=== PATIENT | female | born 1965 | race Hispanic/Latino ===

== ENCOUNTER 2019-08-30 15:09 | Emergency (ER) | payer BC ==
[2019-08-30] MEDS ORDERED: ASPIRIN 81 MG CHEWABLE TABLET ONE (15:43)
[2019-08-30] MEDS ORDERED: NA CHLORIDE 0.9% 1,000 ML ONE (15:43)
[2019-08-30 15:44] LABS: Absolute Lymphocytes (CBC) 1.8 K/uL (0.7-4.9); Basophils % 0.8 % (0-1.3); Lymphocytes % 34.2 % (15.3-44.8); MPV 9.6 fL (7.6-11.3); RBC Red Blood Cell Count 4.26 M/uL (3.86-4.86)
[2019-08-30 15:47] LABS: Protime INR 0.89
--- NOTE | 2019-08-30 16:00 | RAD REPORT ---
EXAM DESCRIPTION: RAD - Chest Single View - 08/30/2019 3:47 pm CLINICAL HISTORY: CHEST PAIN Chest pain. COMPARISON: <Comparisons> FINDINGS: Portable technique limits examination quality. The lungs are grossly clear. The heart is normal in size. No displaced fractures. IMPRESSION: No acute intrathoracic process suspected.
[2019-08-30 16:05] LABS: ALT/SGPT 23 U/L (12-78); AST/SGOT 15 U/L (15-37); Albumin 3.8 g/dL (3.4-5.0); Alkaline Phosphatase 100 U/L (45-117); BUN Blood Urea Nitrogen 11 mg/dL (7-18); Bicarbonate 29 mmol/L (21-32); Bilirubin Direct < 0.1 mg/dL (0-0.2); Bilirubin Total 0.3 mg/dL (0.2-1.0); Glucose Level 83 mg/dL (74-106); Magnesium 2.6 mg/dL (1.8-2.4); NT PRO-BNP 30 pg/mL (<125); Potassium 3.3 mmol/L (3.5-5.1); Protein, Total 7.6 g/dL (6.4-8.2); Sodium Level 140 mmol/L (136-145); Troponin (Emerg Dept Use Only) < 0.02 ng/mL (0.0-0.045)
[2019-08-30] MEDS ORDERED: MAGNE/ALUM HYDROXD 30 ML UCUP ONE (17:30)
[2019-08-30] MEDS ORDERED: LIDOCAINE VISCOUS 2% SOLN 15 ML UDC ONE (17:31)
[2019-08-30] MEDS ORDERED: PANTOPRAZOLE 40MG TABLET PO ONE (17:31)
--- NOTE | 2019-08-30 19:22 | ER ---
Nurse's Notes [facility] Name: Darcy Shay Age: 53 yrs Sex: Female : 1965 Arrival Date: 08/30/2019 Time: 15:11 Bed 7 Private MD: Chaparrita Mg K Diagnosis: Chest pain, unspecified Presentation: 08/30 15:11 Presenting complaint: Patient states: Chest pain that started yesterday. Reports left aj1 sided chest pain that radiates to the back. Patient also reports shortness of breath. Denies cough congestion. Transition of care: patient was not received from another setting of care. Onset of symptoms was August 29, 2019. Risk Assessment: Do you want to hurt yourself or someone else? Patient reports no desire to harm self or others. Initial Sepsis Screen: Does the patient meet any 2 criteria? No. Patient's initial sepsis screen is negative. Does the patient have a suspected source of infection? No. Patient's initial sepsis screen is negative. Care prior to arrival: None. 15:11 Method Of Arrival: [facility] 15:11 Acuity: EZE 3 aj1 Triage Assessment: 15:13 General: Appears in no apparent distress. uncomfortable, Behavior is calm, cooperative, aj1 appropriate for age. Pain: Complains of pain in anterior aspect of left upper chest Pain radiates to back and left arm Pain currently is 9 out of 10 on a pain scale. Neuro: Level of Consciousness is awake, alert, obeys commands. Cardiovascular: Patient's skin is warm and dry. Respiratory: Airway is patent Respiratory effort is even, unlabored, Respiratory pattern is regular, symmetrical. 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 - Social history:: Smoking status: Patient/guardian denies using tobacco. - Ebola Screening: : Patient denies travel to an Ebola-affected area in the 21 days before illness onset. Screenin:36 Abuse screen: Denies threats or abuse. Nutritional screening: No deficits noted. aa5 Tuberculosis screening: No symptoms or risk factors identified. Fall Risk None identified. Assessment: 15:36 General: Appears in no apparent distress. Behavior is calm, cooperative. Pain: aa5 Complains of pain in anterior aspect of left upper chest Pain does not radiate. Pain currently is 5 out of 10 on a pain scale. Quality of pain is described as burning, aching, pressure, radiating, sharp, shooting, stabbing. Neuro: Level of Consciousness is awake, alert, obeys commands, Oriented to person, place, time, situation. Cardiovascular: Heart tones S1 S2 present. Respiratory: Airway is patent Respiratory effort is even, unlabored, Respiratory pattern is regular, symmetrical, Breath sounds are clear bilaterally. GI: No signs and/or symptoms were reported involving the gastrointestinal system. : No signs and/or symptoms were reported regarding the genitourinary system. 16:32 Reassessment: Patient appears in no apparent distress at this time. No changes from la1 previously documented assessment. Patient and/or family updated on plan of care and expected duration. Pain level reassessed. Patient is alert, oriented x 3, equal unlabored respirations, skin warm/dry/pink. 18:38 Reassessment: Patient appears in no apparent distress at this time. No changes from la1 previously documented assessment. Patient and/or family updated on plan of care and expected duration. Pain level reassessed. Patient is alert, oriented x 3, equal unlabored respirations, skin warm/dry/pink. 19:30 Reassessment: Patient appears in no apparent distress at this time. No changes from la1 previously documented assessment. Patient and/or family updated on plan of care and expected duration. Pain level reassessed. Patient is alert, oriented x 3, equal unlabored respirations, skin warm/dry/pink. Vital Signs: 15:13 Pulse 77; Resp 18; Temp 97.8; Pulse Ox 100% on R/A; Weight 57.15 kg (R); Height 5 ft. 1 aj1 in. (154.94 cm) (R); Pain 9/10; 15:14 BP 159 / 90; aj1 17:34 BP 145 / 74; Pulse 74; Resp 16; Pulse Ox 98% on R/A; la1 18:38 BP 129 / 80; Pulse 74; Resp 16; Pulse Ox 98% on R/A; la1 19:30 BP 148 / 87; Pulse 76; Resp 16; Pulse Ox 98% on R/A; la1 15:13 Body Mass Index 23.81 (57.15 kg, 154.94 cm) aj1 ED Course: 15:11 Patient arrived in ED. mr 15:11 Chaparrita Mg MD is Private Physician. mr 15:12 Triage completed. aj1 15:15 Arm band placed on Patient placed in an exam room. aj1 15:20 Man Stanley PA is PHCP. cp 15:20 Man Metz MD is Attending Physician. cp 15:21 Olegario Baca, KATIE is Primary Nurse. la1 15:33 EKG done, by orthotics technician. reviewed by Man KEE. sm3 15:36 No provider procedures requiring assistance completed. Inserted saline lock: 20 gauge aa5 in right antecubital area, using aseptic technique. Blood collected. 15:37 Patient has correct armband on for positive identification. Placed in gown. Bed in low aa5 position. panel monitor on. Pulse ox on. NIBP on. 15:49 XRAY Chest (1 view) In Process Unspecified. EDMS 19:21 Chaparrita Mg MD is Referral Physician. cp 19:21 Sergio Zamora MD is Referral Physician. cp 19:30 IV discontinued, intact, bleeding controlled, No redness/swelling at site. Pressure la1 dressing applied. Administered Medications: 15:47 Drug: NS 0.9% 1000 ml Route: IV; Rate: 1 bolus; Site: right antecubital; la1 16:33 Follow up: IV Status: Completed infusion la1 15:47 Drug: Aspirin Chewable Tablet 324 mg Route: PO; la1 16:24 Follow up: Response: No adverse reaction la1 16:33 Follow up: Response: No adverse reaction la1 15:47 Drug: Nitroglycerin 0.4 mg Route: Sublingual; la1 16:24 Follow up: Response: No adverse reaction la1 16:33 Follow up: Response: No adverse reaction la1 17:34 Drug: GI Cocktail without - (Maalox Suspension 30 ml, Lidocaine Liquid 2 % 15 la1 ml) Route: PO; 18:38 Follow up: Response: No adverse reaction la1 17:34 Drug: ProTONIX 40 mg Route: PO; la1 18:38 Follow up: Response: No adverse reaction la1 Outcome: 19:21 Discharge ordered by . imer 19:30 Discharged to home ambulatory. la1 19:30 Condition: stable 19:30 Discharge instructions given to patient, Instructed on discharge instructions, follow up and referral plans. no driving heavy equipment, Demonstrated understanding of instructions, follow-up care, medications, Prescriptions given X 2. 19:31 Patient left the ED. la1 Signatures: Dispatcher [employer] EDMS Catherine Wheat, RN RN major1 Ibeth Doran mr BeeJustine RN RN aa5 Olegario Baca RN RN la1 Man Stanley PA PA cp Montes, Shakira 3
--- NOTE | 2019-08-30 19:22 | EDPHYS ---
Physician Documentation [facility] Name: Darcy Shay Age: 53 yrs Sex: Female : 1965 Arrival Date: 08/30/2019 Time: 15:11 Bed 7 Private MD: Chaparrita Mg K ED Physician Man Metz HPI: 08/30 15:35 This 53 yrs old Female presents to ER via Ambulatory with complaints of Chest cp Pain. 15:35 The patient or guardian reports chest pain that is located primarily in the anterior cp chest wall, left. 15:35 Onset: yesterday. The pain radiates to left back. Associated signs and symptoms: cp Pertinent positives: shortness of breath, Pertinent negatives: abdominal pain, cough, diaphoresis, dizziness, headache, lower extremity pain, lower extremity swelling, recent travel, syncope. 15:35 The chest pain is described as aching, a pressure, sharp, constant. Duration: The cp patient or guardian reports a single episode, that is still ongoing, and unchanged. 15:35 Modifying factors: the symptoms are aggravated by nothing. Severity of pain: in the cp emergency department the pain is unchanged despite home interventions, is a . 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 - Social history:: Smoking status: Patient/guardian denies using tobacco. - Ebola Screening: : Patient denies travel to an Ebola-affected area in the 21 days before illness onset. ROS: 15:38 Constitutional: Negative for body aches, chills, fever, poor PO intake. cp 15:38 Eyes: Negative for injury, pain, redness, and discharge. cp 15:38 ENT: Negative for drainage from ear(s), ear pain, sore throat, difficulty swallowing, difficulty handling secretions. 15:38 Cardiovascular: Positive for chest pain, Negative for edema, palpitations. 15:38 Respiratory: Positive for shortness of breath, Negative for cough, wheezing. 15:38 Abdomen/GI: Negative for abdominal pain, nausea, vomiting, and diarrhea, constipation. 15:38 Back: Positive for radiated pain, Negative for injury or acute deformity. 15:38 : Negative for urinary symptoms. 15:38 Skin: Negative for cellulitis, rash. 15:38 Neuro: Positive for numbness, of the left arm, Negative for altered mental status, headache, weakness. 15:38 All other systems are negative. Exam: 15:35 ECG was reviewed by the Attending Physician. cp 15:45 Constitutional: The patient appears in no acute distress, alert, awake, cp non-diaphoretic, non-toxic, well developed, well nourished. 15:45 Head/Face: Normocephalic, atraumatic. cp 15:45 Eyes: Periorbital structures: appear normal, Pupils: equal, round, and reactive to light and accomodation, Extraocular movements: intact throughout, Conjunctiva: normal, no exudate, no injection, Sclera: no appreciated abnormality, Lids and lashes: appear normal, bilaterally. 15:45 ENT: External ear(s): are unremarkable, Ear canal(s): are normal, clear, TM's: bulging, is not appreciated, bilaterally, Nose: is normal, Mouth: is normal, Posterior pharynx: is normal, airway is patent, no erythema, no exudate, Voice: is normal. 15:45 Neck: ROM/movement: is normal, is supple, without pain, no range of motions limitations, no meningismus, no nuchal rigidity. 15:45 Chest/axilla: Inspection: normal, Palpation: is normal, no crepitus, no tenderness. 15:45 Cardiovascular: Rate: normal, Rhythm: regular, Pulses: Pulses are 2+ in right radial artery and left radial artery. Heart sounds: murmur, not appreciated, Edema: is not appreciated, JVD: is not appreciated. 15:45 Respiratory: the patient does not display signs of respiratory distress, Respirations: normal, no use of accessory muscles, no retractions, no splinting, no tachypnea, labored breathing, is not present, Breath sounds: are clear throughout, no decreased breath sounds, no stridor, no wheezing. 15:45 Abdomen/GI: Inspection: abdomen appears normal, Palpation: abdomen is soft and non-tender, in all quadrants. 15:45 Back: pain, that is mild, of the left trapezius and left scapular area, ROM is normal. 15:45 Skin: no rash present. 15:45 Neuro: Orientation: to person, place \T\ time. Mentation: is normal, Motor: moves all fours, strength is normal, Sensation: numbness, that is mild, of the left arm. 19:18 ECG was reviewed by the Attending Physician. Vital Signs: 15:13 Pulse 77; Resp 18; Temp 97.8; Pulse Ox 100% on R/A; Weight 57.15 kg (R); Height 5 ft. 1 aj1 in. (154.94 cm) (R); Pain 9/10; 15:14 BP 159 / 90; aj1 17:34 BP 145 / 74; Pulse 74; Resp 16; Pulse Ox 98% on R/A; la1 18:38 BP 129 / 80; Pulse 74; Resp 16; Pulse Ox 98% on R/A; la1 19:30 BP 148 / 87; Pulse 76; Resp 16; Pulse Ox 98% on R/A; la1 15:13 Body Mass Index 23.81 (57.15 kg, 154.94 cm) aj1 MDM: 15:23 Patient medically screened. jorge 16:00 Differential diagnosis: abnormal EKG, acute myocardial infarction, cholecystitis, cp Cholelithiasis costochondritis, pericarditis, pleurisy, pneumonia, pneumothorax, pulmonary embolus, stable angina, thoracic aortic disection, unstable angina. 16:55 HEART Score: History: Slightly Suspicious (0), ECG: Normal (0), Age: > 45 and < 65 cp years (1), Risk Factors: 1 or 2 risk factors (1), [Hypercholesterolemia] [+ Family HX] Troponin: < or = 1 x Normal Limit (0), Total Score = 3. The patient was given aspirin in the Emergency Department. Data reviewed: vital signs, nurses notes, lab test result(s), EKG, radiologic studies, plain films. 16:56 Physician consultation: Carmelo Chand DO was called at 16:45, was contacted at 16:45, regarding admission, to the telemetry unit. patient's condition, in the emergency department to see patient at 16:45, recommends repeat troponin and outpatient f/u with cardiology and family practice. 19:20 Test interpretation: by ED physician or midlevel provider: ECG, plain radiologic cp studies. 19:20 Counseling: I had a detailed discussion with the patient and/or guardian regarding: the cp historical points, exam findings, and any diagnostic results supporting the discharge/admit diagnosis, the presence of at least one elevated blood pressure reading (>120/80) during this emergency department visit, lab results, radiology results, the need for outpatient follow up, a car filler, a family practitioner, to return to the emergency department if symptoms worsen or persist or if there are any questions or concerns that arise at home. Response to treatment: the patient's symptoms have markedly improved after treatment, VSS. Patient remained chest pain free after administration of meds. Repeat troponin and EKG negative. Will discharge to home for continued monitoring. 08/30 15:28 Order name: Basic Metabolic Panel; Complete Time: 16:07 08/30 16:07 Interpretation: Normal except: K 3.3. 08/30 15:28 Order name: CBC with Diff; Complete Time: 16:07 08/30 15:28 Order name: LFT's; Complete Time: 16:07 08/30 16:08 Interpretation: Normal except: GLOB 3.8; A/G 1.0. 08/30 15:28 Order name: Magnesium; Complete Time: 16:07 08/30 16:07 Interpretation: Abnormal: MG 2.6. 08/30 15:28 Order name: NT PRO-BNP; Complete Time: 16:07 08/30 15:28 Order name: PT-INR; Complete Time: 16:07 08/30 15:28 Order name: Troponin (emerg Dept Use Only); Complete Time: 16:07 08/30 16:08 Interpretation: Within normal limits: TROPED < 0.02. 08/30 15:28 Order name: XRAY Chest (1 view); Complete Time: 16:13 08/30 16:13 Interpretation: Report review. 08/30 15:28 Order name: D-Dimer; Complete Time: 16:07 08/30 18:28 Order name: Troponin (emerg Dept Use Only); Complete Time: 19:07 la1 08/30 19:07 Interpretation: Reviewed. 08/30 15:28 Order name: EKG; Complete Time: 15:29 cp 08/30 15:28 Order name: Cardiac monitoring; Complete Time: 15:36 cp 08/30 15:28 Order name: EKG - Nurse/Tech; Complete Time: 15:36 cp 08/30 15:28 Order name: IV Saline Lock; Complete Time: 15:36 cp 08/30 15:28 Order name: Labs collected and sent; Complete Time: 15:36 cp 08/30 15:28 Order name: O2 Per Protocol; Complete Time: 15:36 cp 08/30 15:28 Order name: O2 Sat Monitoring; Complete Time: 15:36 cp 08/30 18:34 Order name: EKG; Complete Time: 18:35 cp 08/30 18:34 Order name: EKG - Nurse/Tech; Complete Time: 18:52 cp EC:35 Rate is 64 beats/min. Rhythm is regular. TX interval is normal. QRS interval is normal. cp QT interval is normal. Interpreted by me. Reviewed by me. 19:18 Rate is 62 beats/min. Rhythm is regular. TX interval is normal. QRS interval is normal. cp QT interval is normal. T waves are Flattened in lead III. Interpreted by me. Reviewed by me. Administered Medications: 15:47 Drug: NS 0.9% 1000 ml Route: IV; Rate: 1 bolus; Site: right antecubital; la1 16:33 Follow up: IV Status: Completed infusion la1 15:47 Drug: Aspirin Chewable Tablet 324 mg Route: PO; la1 16:24 Follow up: Response: No adverse reaction la1 16:33 Follow up: Response: No adverse reaction la1 15:47 Drug: Nitroglycerin 0.4 mg Route: Sublingual; la1 16:24 Follow up: Response: No adverse reaction la1 16:33 Follow up: Response: No adverse reaction la1 17:34 Drug: GI Cocktail without - (Maalox Suspension 30 ml, Lidocaine Liquid 2 % 15 la1 ml) Route: PO; 18:38 Follow up: Response: No adverse reaction la1 17:34 Drug: ProTONIX 40 mg Route: PO; la1 18:38 Follow up: Response: No adverse reaction la1 Disposition: 08/30/19 19:21 Discharged to Home. Impression: Chest pain, unspecified. - Condition is Stable. - Discharge Instructions: Nonspecific Chest Pain, Aspirin and Your Heart. - Prescriptions for Ibuprofen 800 mg Oral Tablet - take 1 tablet by ORAL route every 8 hours As needed take with food; 30 tablet. Pepcid 20 mg Oral Tablet - take 1 tablet by ORAL route every 12 hours for 10 days; 20 tablet. - Medication Reconciliation Form, Thank You Letter, Antibiotic Education, Prescription Opioid Use form. - Follow up: Chaparrita Mg MD; When: 2 - 3 days; Reason: Recheck today's complaints. Follow up: Sergio Zamora MD; When: 2 - 3 days; Reason: chest pain. - Problem is new. - Symptoms have improved. Addendum: 09/01/2019 13:16 Co-signature as Attending Physician, Man Metz MD I agree with the assessment and c spence plan of care. Signatures: Dispatcher [employer] EDCatherine Khoury, RN RN aj1 Man Metz MD MD cha Attema, Lee RN RN la1 Man Stanley PA PA cp Corrections: (The following items were deleted from the chart) 08/30 19:31 19:21 08/30/2019 19:21 Discharged to Home. Impression: Chest pain, unspecified. la1 Condition is Stable. Forms are Medication Reconciliation Form, Thank You Letter, Antibiotic Education, Prescription Opioid Use. Follow up: Chaparrita Mg; When: 2 - 3 days; Reason: Recheck today's complaints. Follow up: Sergio Zamora; When: 2 - 3 days; Reason: chest pain. Problem is new. Symptoms have improved. cp
[2019-08-30 22:08] VITALS: TEMP 97.8
[2019-08-30 22:10] VITALS: O2SAT 98
[2019-08-30 22:13] VITALS: BP 148/87
--- NOTE | 2019-09-01 12:49 | EKG ---
Test Date: 2019-08-30 Test Time: 19:13:26 Firebreak Cutter: ELIZA MEASUREMENT RESULTS: Intervals: Rate: 62 MN: 148 QRSD: 78 QT: 420 QTc: 426 [place]: P: 21 MN: 148 QRS: 7 T: 13 INTERPRETIVE STATEMENTS: Normal sinus rhythm Normal ECG Compared to ECG 08/30/2019 15:31:32 No significant changes Electronically Signed On 09-01-19 12:45:29 VALVE MECHANIC by Rayshawn Azul
--- NOTE | 2019-09-01 12:49 | EKG ---
Test Date: 2019-08-30 Test Time: 15:31:32 Middle Stitcher: ANIRUDH MEASUREMENT RESULTS: Intervals: Rate: 64 [place]: 146 QRSD: 82 QT: 418 QTc: 431 [place]: P: 28 [place]: 146 QRS: 5 T: 22 INTERPRETIVE STATEMENTS: Normal sinus rhythm Normal ECG Compared to ECG 01/03/2005 10:52:00 No significant changes Electronically Signed On 09-01-19 12:45:35 VALVE FITTER by Rayshawn Azul
== END 2019-08-30 19:31 | disposition home or self-care (01) ==
LOC: ER 15:09
DX: R07.9 Chest pain, unspecified (principal); Z98.82 Breast implant status
CPT/HCPCS: 36415; 71045; 80048; 80076; 83735; 83880; 84484; 85025; 85379; 85610; 93005; 96360; 99285; J7030